=== PATIENT | female | born 1975 | race Caucasian/White ===

== ENCOUNTER 2018-04-11 03:20 | Inpatient (IN) | payer BC, OTHER ==
[~2018-04-11] VITALS: Ht 157.5 cm; Wt 93.0 kg
[2018-04-11 03:24] VITALS: BP 129/48
--- NOTE | 2018-04-11 03:28 | NUR ---
PT TAKEN TO BED 1
[2018-04-11] MEDS ORDERED: DICYCLOMINE HCL LIQUID 20 MG, ALUMINUM HYD/MAG/SIMETHICONE 30 ML, LIDOCAINE VISCOUS 2% ... PO ONE ×3 (04:00)
[2018-04-11] MEDS ORDERED: NACL 0.9% 1,000 ML IV ONE (04:00)
[2018-04-11] MEDS ORDERED: MORPHINE SULFATE 4 MG/ML SYR IVP ONE ×2 (04:00→07:05)
[2018-04-11] MEDS ORDERED: ONDANSETRON 4 MG/2 ML VIAL IVP ONE ×2 (04:00→07:05)
--- NOTE | 2018-04-11 04:35 | NUR ---
LAB COLLECTED BY OLU AND SENT TO LAB BY ALAINA RAINES.
[2018-04-11 05:18] LABS: ANION GAP 14.4 (8-16); CARBON DIOXIDE 22.7 mmol/L (21-32); CREATININE 0.8 mg/dL (0.6-1.3); POTASSIUM 3.1 mmol/L (3.5-5.1)
[2018-04-11 05:20] LABS: BASOPHILS % (AUTO) 0.4 % (0.0-2.0); EOSINOPHILS % (AUTO) 0.4 % (0.0-4.0); HEMATOCRIT 35.1 % (36-48); HEMOGLOBIN 11.4 g/dL (12.0-16.0); LYMPHOCYTES # (AUTO) 1.2 K/uL (2.5-16.5); LYMPHOCYTES % (AUTO) 15.9 % (20.5-51.1); MEAN CORPUSCULAR HEMOGLOBIN 26 pg (27-31); MEAN CORPUSCULAR HGB CONC 33 g/dL (33-37); MEAN CORPUSCULAR VOLUME 78.1 fL (80-94); MONOCYTES # (AUTO) 0.4 K/uL (0.8-1.0); MONOCYTES % (AUTO) 5.1 % (1.7-9.3); NEUTROPHILS # (AUTO) 5.9 K/uL (1.8-7.7); NEUTROPHILS % (AUTO) 78.2 % (42.2-75.2); PLATELET COUNT (AUTO) 227 K/uL (140-450); RED CELL DISTRIBUTION WIDTH 14.8 % (11.6-13.7); WHITE BLOOD COUNT (AUTO) 7.5 K/uL (4.8-10.8)
[2018-04-11 05:24] LABS: ALBUMIN 3.8 g/dL (3.4-5.0); TOTAL BILIRUBIN 0.2 mg/dL (0.0-1.0)
--- NOTE | 2018-04-11 06:24 | NUR ---
PT IS VOMITING AND PAIN IS 6/10, ER MD MADE AWARE. DR. MERLOS TO ORDER CT.
[2018-04-11] MEDS ORDERED: KETOROLAC 30 MG/ML VIAL IVP ONE (06:25)
--- NOTE | 2018-04-11 06:36 | NUR ---
PT TO CT VIA WHIT BY Wefunder.
[2018-04-11] MEDS ORDERED: KETOROLAC 60 MG/2 ML VIAL IM ONE (06:44)
--- NOTE | 2018-04-11 07:02 | NUR ---
Pt report given to Miky RAINES. Transfer of care at this time.
--- NOTE | 2018-04-11 07:04 | NUR ---
RECEIVED REPORT FROM ANA RAINES.
--- NOTE | 2018-04-11 07:47 | NUR ---
Patient appears to be resting comfortably in bed. BP 174/92, P 67, Respirations even and unlabored. ABD PAIN 4/10 AT THIS TIME. WILL CONTINUE TO MONITOR.
[2018-04-11] MEDS ORDERED: ACETAMINOPHEN 325 MG TAB PO PRN (07:50)
[2018-04-11] MEDS ORDERED: DOCUSATE SODIUM 100 MG GELCAP PO PRN (07:50)
[2018-04-11] MEDS ORDERED: POTASSIUM CHLORIDE 40 MEQ, LIDOCAINE MPF 1% - 5 mL VIAL 25 MG in NACL 0.9% 250 ML IV ONE (07:55)
--- NOTE | 2018-04-11 07:58 | NUR ---
X RAY AT BEDSIDE.
[2018-04-11] MEDS ORDERED: hydrALAZINE 20 MG/ML VIAL IVP PRN (08:20)
--- NOTE | 2018-04-11 08:35 | NUR ---
Patient will be admitted to care of DR GANDARA. Admited to TELE. Will go to room 112A. Belongings list completed. Report to JOE RAINES.
[2018-04-11 08:40] VITALS: BP 176/87
[2018-04-11] MEDS ORDERED: POTASSIUM CHLORIDE 40 MEQ, LIDOCAINE MPF 1% - 5 mL VIAL 25 MG in NACL 0.9% 250 ML IV SCH (09:00)
--- NOTE | 2018-04-11 09:00 | NUR ---
Admitted from ED , with chief complaint of ABDOMINAL PAIN SINCE LAST NIGHT WITH N&V. PT AAOX4. NO SOB NOTED. NO C/O PAIN AT THIS TIME. IV TO RT AC PATENT AND INTACT. CHEST CLEAR. ABDOMEN SOFT, BOWEL SOUNDS PRESENT. NO EDEMA NOTED. PT IS A 43 y/o ,Female, Cooperative,oriented to call light, bed, phone,television, bathroom, smoking policy, visiting hours, procedures, ID bracelet on. Belongings list checked. INSTRUCTED PT TO CALL FOR ASSISTANCE, CALL LIGHT WITHIN REACH, PT VERBALIZED UNDERSTANDING.
[2018-04-11] MEDS ORDERED: DICYCLOMINE HCL LIQUID 10 MG/5 ML UDC PO PRN (10:00)
[2018-04-11] MEDS ORDERED: ASPIRIN 81 MG TAB.CHEW PO SCH (10:08)
--- NOTE | 2018-04-11 10:17 | NUR ---
ULTRASOUND OF ABDOMEN ON GOING AT THE BEDSIDE.
[2018-04-11] MEDS: LACTOBACILLUS RHAMNOSUS GG 1 EACH CAP PO SCH (10:57)
[2018-04-11] MEDS: NACL 0.9% 1,000 ML IV SCH (10:57)
--- NOTE | 2018-04-11 11:00 | NUR ---
NPO EXCEPT MEDS MAINTAINED, PT VERBALIZED UNDERSTANDING.
[2018-04-11] MEDS: MORPHINE SULFATE 2 MG/ML SYR IVP PRN ×2 (11:11→15:37)
[2018-04-11] MEDS: ONDANSETRON 4 MG/2 ML VIAL IM/IVP PRN (11:14)
[2018-04-11 11:17] LABS: CHOL/HDL RATIO 2.9 (1-4.5); MAGNESIUM 1.6 mg/dL (1.8-2.4); PHOSPHORUS 3.7 mg/dL (2.5-4.9); THYROID STIMULATING HORMONE 0.72 uIU/mL (0.34-3.74)
[2018-04-11 11:24] LABS: PROTHROMBIN TIME 9.6 secs (10.8-13.4)
[2018-04-11 12:00] VITALS: BP 154/78
--- NOTE | 2018-04-11 13:30 | NUR ---
DR. VELAZCO IS AT THE BEDSIDE TALKING TO PT.
[2018-04-11] MEDS: HYDROcodone/APAP 7.5/325 MG 1 TAB PO PRN ×2 (14:10→18:53)
--- NOTE | 2018-04-11 15:00 | NUR ---
CONSENT FOR PLANNED SURGERY TOMORROW SIGNED BY PT. RISKS AND BENEFITS OF THE PROCEDURE EXPLAINED BY DR. VELAZCO EARLIER. VERBALIZED UNDERSTANDING.
[2018-04-11] MEDS ORDERED: ONDANSETRON 4 MG/2 ML VIAL ONE (15:32)
[2018-04-11] MEDS ORDERED: KETOROLAC 30 MG/ML VIAL ONE (15:32)
[2018-04-11] MEDS ORDERED: PROPOFOL 200 MG/20 ML VIAL IV ONE (15:32)
[2018-04-11] MEDS ORDERED: SUCCINYLCHOLINE CHLORIDE 200 MG/10 ML VIAL IVP ONE (15:32)
[2018-04-11] MEDS ORDERED: DESFLURANE 240 ML BTL INH ONE (15:32)
[2018-04-11] MEDS ORDERED: DEXAMETHASONE 4 MG/ML VIAL ONE (15:32)
[2018-04-11] MEDS ORDERED: ROCURONIUM 50 MG/5 ML VIAL IV ONE (15:32)
[2018-04-11 16:00] VITALS: BP 140/77
[2018-04-11] MEDS ORDERED: MAG SULF 2000 MG/WATER PREMIX 50 ML IV ONE (17:20)
--- NOTE | 2018-04-11 18:00 | NUR ---
PT TOLERATED FULL LIQUID DIET. NO N&V NOTED. NPO POST MIDNIGHT INSTRUCTED, VERBALIZED UNDERSTANDING.
--- NOTE | 2018-04-11 18:30 | NUR ---
STILL FOR URINE SPECIMEN COLLECTION FOR UDS. PT JUST HAD HER MENSTRUAL PERIOD TODAY, STATED SHE WILL COLLECT IT THE NEXT TIME SHE URINATES.
--- NOTE | 2018-04-11 19:20 | NUR ---
RECEIVED FROM AM RN IN BED AWAKE AND ALERT. WITH FAMILY MEMBER VISITING. CALL LIGHT WITH IN REACH AND CARE PLANS FOR THE NIGHT DISCUSSED WITH HER. REMINDED NPO STARTING MIDNIGHT. PROS AND CONS EXPLAINED WELL TO HER. "OK" ENCOURAGED TO CALL FOR HELP OR IF IN PAIN. DX. ABDOMINAL PAIN.
--- NOTE | 2018-04-11 19:23 | NUR ---
PT RESTING. NO SOB NOTED. NO COMPLAINTS OF PAIN AT THIS TIME. WILL ENDORSE TO NEXT SHIFT NURSE FOR CONTINUITY OF CARE.
[2018-04-11 19:49] VITALS: BP 141/80
[2018-04-11] MEDS: PIPER/TAZO 3.375GM/D5W PREMIX 50 ML IV SCH (20:24)
[2018-04-12 00:26] VITALS: BP 105/48
--- NOTE | 2018-04-12 00:28 | NUR ---
PT. SLEEPING WELL. WOKE UP EASILY WHEN CALLED BY NAME . VITAL SIGNS TAKEN. NO COMPLAINTS OF ANY PAIN AT THIS TIME. SLEPT BACK IMMEDIATELY WHEN VS DONE. CALL LIGHT WITH IN REACH.
--- NOTE | 2018-04-12 02:32 | NUR ---
SLEEPING WELL. CALL LIGHT WITH IN REACH.
[2018-04-12] MEDS: PIPER/TAZO 3.375GM/D5W PREMIX 50 ML IV SCH ×3 (04:17→21:36)
[2018-04-12] MEDS: MORPHINE SULFATE 2 MG/ML SYR IVP PRN ×3 (04:17→13:09)
[2018-04-12] MEDS: ONDANSETRON 4 MG/2 ML VIAL IM/IVP PRN (04:17)
--- NOTE | 2018-04-12 04:17 | NUR ---
MEDICATED WITH MORPHINE 2 MG IVP REQUESTED BY PT. MEDICATED WITH ZOFRAN IVP TOOO RT COMPLAINED OF NAUSEA.
[2018-04-12 04:18] VITALS: BP 125/72
--- NOTE | 2018-04-12 04:35 | NUR ---
PT. SLEEPING. NO SOB. ABLE TO VERBALIZE NEEDS WELL.
[2018-04-12 07:09] LABS: BASOPHILS % (AUTO) 0.2 % (0.0-2.0); HEMATOCRIT 33.5 % (36-48); HEMOGLOBIN 10.7 g/dL (12.0-16.0); LYMPHOCYTES # (AUTO) 0.9 K/uL (2.5-16.5); LYMPHOCYTES % (AUTO) 6.9 % (20.5-51.1); MEAN CORPUSCULAR HEMOGLOBIN 25 pg (27-31); MEAN CORPUSCULAR HGB CONC 32 g/dL (33-37); MEAN CORPUSCULAR VOLUME 78.9 fL (80-94); MONOCYTES # (AUTO) 0.8 K/uL (0.8-1.0); MONOCYTES % (AUTO) 6.4 % (1.7-9.3); NEUTROPHILS # (AUTO) 11.4 K/uL (1.8-7.7); NEUTROPHILS % (AUTO) 86.5 % (42.2-75.2); PLATELET COUNT (AUTO) 225 K/uL (140-450); RED BLOOD CELL COUNT(AUTO) 4.25 MIL/uL (4.20-5.40); RED CELL DISTRIBUTION WIDTH 15.3 % (11.6-13.7); WHITE BLOOD COUNT (AUTO) 13.2 K/uL (4.8-10.8)
[2018-04-12 07:23] LABS: ANION GAP 9.8 (8-16); CARBON DIOXIDE 26.5 mmol/L (21-32); CREATININE 0.8 mg/dL (0.6-1.3); POTASSIUM 3.3 mmol/L (3.5-5.1)
[2018-04-12 07:28] LABS: MAGNESIUM 2.5 mg/dL (1.8-2.4); PHOSPHORUS 2.7 mg/dL (2.5-4.9)
--- NOTE | 2018-04-12 07:37 | NUR ---
ENDORSED TO THE NEXT RN FOR CONTINUITY OF CARE. AWAKE AND ALERT. NO COMPLAINTS DONE. TELEMETRY MONITORING.
--- NOTE | 2018-04-12 07:38 | NUR ---
RECEIEVED BEDSIDE REPORT FROM CREDIT INTERVIEWER NURSE FLORENCIO. PATIENT AAOX4. PATIENT ON ROOM AIR, NO DISTRESS NOTED. SKIN INTACT. IV ON R AC 20 G INFUSING NS AT 40. IV ASYMPTOMATIC, INTACT AND PATENT. PATIENT ON TELE MONITOR AND STANDARD PRECAUTIONS IN PLACE. PATIENT AMBULATORY AND CONTINENT. BED IN LOW POSITION, CALL LIGHT WITHIN REACH. WILL CONTINUE TO MONITOR.
[2018-04-12] MEDS: NACL 0.9% 1,000 ML IV SCH (07:49)
[2018-04-12 08:00] VITALS: BP 115/59
--- NOTE | 2018-04-12 08:25 | NUR ---
PATIENT HAS BEEN SCREENED AND CATEGORIZED MODERATE NUTRITION RISK. PATIENT WILL BE SEEN WITHIN 3-5 DAYS OF ADMISSION. 04/13/18[address]
[2018-04-12 08:46] LABS: T4 (THYROXINE) 6.9 ug/dL (4.5-12.0)
[2018-04-12] MEDS ORDERED: ASPIRIN 81 MG TAB.CHEW PO SCH (09:00)
[2018-04-12] MEDS: LACTOBACILLUS RHAMNOSUS GG 1 EACH CAP PO SCH (09:00)
--- NOTE | 2018-04-12 09:30 | NUR ---
ADMINISTERED SCHEDULED MEDS. PATIENT TOLERATED WELL. WILL CONTINUE TO MONITOR.
[2018-04-12 12:00] VITALS: BP 115/69
--- NOTE | 2018-04-12 12:30 | NUR ---
PATIENT AMBULATED BACK FROM RESTROOM. PATIENT ON ROOM AIR, NO DISTRESS NOTED. WILL CONTINUE TO MONITOR. AT BEDSIDE.
[2018-04-12] MEDS ORDERED: POTASSIUM CHLORIDE 10 MEQ TABER PO SCH (14:00)
--- NOTE | 2018-04-12 14:40 | NUR ---
PATIENT PICKED UP FOR SURGERY. CONSENT SIGNED AND IN CHART. PATIENT IN STABLE CONDITION.
[2018-04-12] MEDS ORDERED: BUPIVACAINE-MPF/EPI 0.5% 30 ML VIAL INJ ONE (15:03)
[2018-04-12] MEDS ORDERED: SCOPOLAMINE 1.5 MG/72 HR PATCH TD ONE (15:12)
[2018-04-12] MEDS ORDERED: MIDAZOLAM 2 MG/2 ML VIAL ONE (15:42)
[2018-04-12] MEDS ORDERED: fentaNYL 0.05 MG/ML VIAL ONE (15:43)
[2018-04-12] MEDS ORDERED: ONDANSETRON 4 MG/2 ML VIAL IVP PRN (16:00)
[2018-04-12 18:36] VITALS: BP 143/84
--- NOTE | 2018-04-12 18:36 | NUR ---
RECEIVED BEDSIDE REPORT FROM OR NURSE WIL. PATIENT W CELIA DRAIN, EMPTIED 5 ML, EBL 30 ML, AND URINE OUTPUT 50 ML. 3 BANDAGES, 1 4X4 FOR CELIA DRAIN. CELIA DRAINAGE REDDISH BROWN. VITALS T 98.2, BP 143/84, HR 91, RR 16, O2 SAT 94%. WILL CONTINUE TO MONITOR Q15 MIN DURING REST OF SHIFT. AND 2 CHILDREN AT BEDSIDE.
[2018-04-12 18:51] VITALS: BP 135/81
[2018-04-12] MEDS: HYDROmorphone 1 MG/ML AMP IVP PRN ×2 (19:04→21:39)
--- NOTE | 2018-04-12 19:32 | NUR ---
GAVE BEDSIDE REPORT TO OLU HARTMANN. PATIENT ENDORSED IN STABLE CONDITION.
--- NOTE | 2018-04-12 19:33 | NUR ---
RECEIVED PT FROM AXEL RN PT S/P LAP JOHN AAOX4 RELATIVES AT BED SIDE ON TELEMETRY SR, ABD 3 SMALL DRESSING AND CELIA DRAINING WELL SANGUINEOUS LIQUID APONTE CATH DRAINING WELL YELLOW URINE INITIAL ASSESSMENT DONE
--- NOTE | 2018-04-12 22:34 | NUR ---
PT HAS BEEN MONITORING CLOSE AFTER PAIN MEDIC GIVENPT SLEEPING WELL NOT DISTRESS NOTED
[2018-04-13] VITALS: BP 142/70
--- NOTE | 2018-04-13 01:01 | NUR ---
PT SLEEPING WELL ON BILATERAL SEQUENTIAL STOCKING CELIA DRAINING WELLL SEROSANGUINEOUS
[2018-04-13] MEDS: HYDROmorphone 1 MG/ML AMP IVP PRN (02:05)
[2018-04-13 04:00] VITALS: BP 125/86
--- NOTE | 2018-04-13 04:00 | NUR ---
SPONGE BATH GIVEN LINEN CHANGED PT IS ASSISTED TOTHE RESTROOM ON TELEMETRY SR
[2018-04-13] MEDS: PIPER/TAZO 3.375GM/D5W PREMIX 50 ML IV SCH ×3 (05:27→21:15)
[2018-04-13] MEDS: NACL 0.9% 1,000 ML IV SCH (05:34)
--- NOTE | 2018-04-13 06:32 | NUR ---
PT RESTING ON BED SHE THAYER NTO PASSING GAS YET CELIA DRAINING WELL SEROSANGUINEOUS LIQUID TOALNIGHT SHIFT 21 ML, PT ON TELEMETRY SR, PT WILL BE ENDORSED TO DAY SHIFT NURSE FOR CONTINUITY OF CARE
--- NOTE | 2018-04-13 07:10 | NUR ---
RECEIVED PT REPORT FORM BENCH HAND MACHINE NURSE AT BEDSIDE. PT IS SLEEPING AT THIS TIME, NO S/S OF ANY DISTRESS. PT IS ON ROOM AIR, SKIN INTACT EXCEPT FOR THE THREE SMALL SURGICAL INCISIONS FROM THE LAP JOHN, COVERED BY DRESSINGS. IV SITE NOTED ON THE RAC, 20 G, INFUSING NS 40 ML/HR. PT IS AMBULATORY AND NOT AT RISK FOR FALLS. PT ON CARDIAC DIET. CALL LIGHT IS WITHIN REACH, WILL CONTINUE TO MONITOR.
[2018-04-13 08:00] VITALS: BP 132/84
[2018-04-13 08:28] LABS: HEMATOCRIT 32.9 % (36-48); HEMOGLOBIN 10.2 g/dL (12.0-16.0); LYMPHOCYTES # (AUTO) 0.8 K/uL (2.5-16.5); LYMPHOCYTES % (AUTO) 5.7 % (20.5-51.1); MEAN CORPUSCULAR HEMOGLOBIN 25 pg (27-31); MEAN CORPUSCULAR HGB CONC 31 g/dL (33-37); MEAN CORPUSCULAR VOLUME 80.1 fL (80-94); MONOCYTES # (AUTO) 0.8 K/uL (0.8-1.0); MONOCYTES % (AUTO) 5.4 % (1.7-9.3); NEUTROPHILS # (AUTO) 13.1 K/uL (1.8-7.7); NEUTROPHILS % (AUTO) 88.9 % (42.2-75.2); PLATELET COUNT (AUTO) 211 K/uL (140-450); RED BLOOD CELL COUNT(AUTO) 4.11 MIL/uL (4.20-5.40); RED CELL DISTRIBUTION WIDTH 15.3 % (11.6-13.7); WHITE BLOOD COUNT (AUTO) 14.8 K/uL (4.8-10.8)
[2018-04-13 09:10] LABS: ALBUMIN 2.9 g/dL (3.4-5.0); ANION GAP 12.8 (8-16); CARBON DIOXIDE 26.3 mmol/L (21-32); CREATININE 0.7 mg/dL (0.6-1.3); MAGNESIUM 2.5 mg/dL (1.8-2.4); PHOSPHORUS 2.1 mg/dL (2.5-4.9); POTASSIUM 4.1 mmol/L (3.5-5.1); TOTAL BILIRUBIN 0.5 mg/dL (0.0-1.0)
[2018-04-13] MEDS: LACTOBACILLUS RHAMNOSUS GG 1 EACH CAP PO SCH (09:23)
[2018-04-13] MEDS: MORPHINE SULFATE 2 MG/ML SYR IVP PRN ×4 (09:23→21:18)
--- NOTE | 2018-04-13 10:00 | NUR ---
PT ATE BREAKFAST, C/O ABD PAIN COMING BACK. WILL MEDICATE WHEN TIME IS APPROPRIATE.
--- NOTE | 2018-04-13 11:08 | NUR ---
PT SLEEPING WITH FAMILY AT BEDSIDE WILL RETRY TO HAVE PT DO IS
--- NOTE | 2018-04-13 12:05 | NUR ---
PT AMBULATING AROUND IN THE ROOM. PT STATES SHE IS FEELING STEADY.
[2018-04-13 16:00] VITALS: BP 150/72
[2018-04-13] MEDS: ONDANSETRON 4 MG/2 ML VIAL IM/IVP PRN ×2 (16:17→21:17)
--- NOTE | 2018-04-13 16:20 | NUR ---
PT C/O NAUSEA. PRN IV ZOFRAN ADMINISTERED. WILL CONTINUE TO MONITOR PT.
--- NOTE | 2018-04-13 18:15 | NUR ---
EMPTIED OUT 20 ML OF PINKISH FLUID FROM PT'S CELIA DRAIN. ABD SURGICAL BANDAGES ARE DRY, CLEAN AND INTACT.
--- NOTE | 2018-04-13 19:15 | NUR ---
PT ENDORSED TO CHILD ATTENDANT IN STABLE CONDITION.
--- NOTE | 2018-04-13 19:20 | NUR ---
RECEIVED PT FROM FAB RAINES PT IS AMBULATORY AAOX4 S/P GONZALES LOPEZ DENIES ANY [place] AT THIS TIME ABD DRESSING DRY AND INTACT INITIAL ASSESSMENT DONE
[2018-04-13 20:00] VITALS: BP 156/93
--- NOTE | 2018-04-13 22:00 | NUR ---
AFTER PAIN MEDIC GIVENPT REMAIN STABLE WATCHING TV CELIA DRAINING WELL SEROSANGUINEOUS LIQUID
[2018-04-14] VITALS: BP 148/80
--- NOTE | 2018-04-14 02:02 | NUR ---
PT SLEEPING WELL NOT SIGNS OF DISTRESS NOTED
[2018-04-14] MEDS: MORPHINE SULFATE 2 MG/ML SYR IVP PRN (04:03)
[2018-04-14] MEDS: PIPER/TAZO 3.375GM/D5W PREMIX 50 ML IV SCH (05:29)
--- NOTE | 2018-04-14 05:32 | NUR ---
PT SLEEPING WELL AFTER PAIN MEDIC GIVEN , LINEN ALREADY CHANGED
[2018-04-14] MEDS: NACL 0.9% 1,000 ML IV SCH (06:26)
--- NOTE | 2018-04-14 06:30 | NUR ---
PT SLEEPING NOT DISTRESS NOTED CELIA DURING ALL [employer]CAR DRIVER 20 ML ABD DRESSING DRY AND INTACT. IV ON RT AC INFUSIG WELL
[2018-04-14 06:31] LABS: BASOPHILS % (AUTO) 0.3 % (0.0-2.0); EOSINOPHILS % (AUTO) 0.3 % (0.0-4.0); HEMATOCRIT 31.2 % (36-48); HEMOGLOBIN 9.9 g/dL (12.0-16.0); LYMPHOCYTES # (AUTO) 0.8 K/uL (2.5-16.5); LYMPHOCYTES % (AUTO) 11.1 % (20.5-51.1); MEAN CORPUSCULAR HEMOGLOBIN 25 pg (27-31); MEAN CORPUSCULAR HGB CONC 32 g/dL (33-37); MEAN CORPUSCULAR VOLUME 79.9 fL (80-94); MONOCYTES # (AUTO) 0.6 K/uL (0.8-1.0); MONOCYTES % (AUTO) 7.8 % (1.7-9.3); NEUTROPHILS # (AUTO) 5.7 K/uL (1.8-7.7); NEUTROPHILS % (AUTO) 80.5 % (42.2-75.2); PLATELET COUNT (AUTO) 209 K/uL (140-450); RED BLOOD CELL COUNT(AUTO) 3.91 MIL/uL (4.20-5.40); RED CELL DISTRIBUTION WIDTH 15.2 % (11.6-13.7); WHITE BLOOD COUNT (AUTO) 7.1 K/uL (4.8-10.8)
[2018-04-14 07:07] LABS: CARBON DIOXIDE 26.3 mmol/L (21-32); CREATININE 0.7 mg/dL (0.6-1.3); POTASSIUM 3.3 mmol/L (3.5-5.1)
[2018-04-14 07:17] LABS: MAGNESIUM 2.1 mg/dL (1.8-2.4); PHOSPHORUS 2.7 mg/dL (2.5-4.9)
--- NOTE | 2018-04-14 07:23 | NUR ---
RECEIVED BEDSIDE REPORT FROM SKI EDGE PAINTER RN. PT IN STABLE CONDITION. S/P LAP JOHN WITH CELIA DRAIN TO SUCTION.DRESSINGS C/D/I. TOLERABLE ABD INCISIONAL PAIN. PT IS AMBULATORY WITHOUT ASSIST. AOX4. BS PRESENT IN ALL QUADRANTS. ALL SAFETY PRECAUTIONS IN PLACE, WILL CONTINUE TO MONITOR.
[2018-04-14 08:00] VITALS: BP 142/82
--- NOTE | 2018-04-14 08:16 | NUR ---
PATIENT AMBULATING IN [facility] WITHOUT ASSIST. STATES PAIN TOLERABLE.
[2018-04-14] MEDS: HYDROcodone/APAP 7.5/325 MG 1 TAB PO PRN (08:28)
[2018-04-14] MEDS: LACTOBACILLUS RHAMNOSUS GG 1 EACH CAP PO SCH (08:28)
[2018-04-14] MEDS ORDERED: ACET-5629 PO (08:47)
[2018-04-14] MEDS ORDERED: SODIUM PHOS / POTASSIUM PHOS 1 PKT PDR PO SCH (09:00)
[2018-04-14] MEDS ORDERED: LISI10TA11 PO (09:06)
--- NOTE | 2018-04-14 10:55 | NUR ---
DISCHARGE PAPERWORK, INCLUDING F/U APPOINTMENT W/ SURGEON, GIVEN TO PATIENT. NEW PRESCRIPTION/MEDICATION TEACHING AND MEDICATION RECONCILIATION TEACHING GIVEN TO PATIENT. IV SITE REMOVED WITH MINIMAL BLOOD LOSS AND LUMEN COMPLETELY INTACT. CELIA DRAIN REMOVED WITH MINIMAL BLOOD LOSS. D/C PHOTOS TAKEN. NEW DRESSINGS APPLIED. INCISIONAL CARE INSTRUCTIONS GIVEN. ID BANDS REMOVED. ALL PERSONAL BELONGINGS ARE WITH PATIENT. FLU VACCINE UP TO DATE. PNEUMOVAX NOT INDICATED. PATIENT DISCHARGED VIA WHEELCHAIR AND WILL GO HOME WITH FAMILY MEMBER VIA PRIVATE VEHICLE.
== END 2018-04-14 10:55 | disposition home or self-care (01) | DRG 417 ==
LOC: MED 03:20 → MTU 07:53
PROVIDERS: ADMIT General Practice; ATTEND General Practice
PROC: 0D9W40Z Drainage of Peritoneum with Drainage Device, Percutaneous Endoscopic Approach (ICD-10-PCS; 2018-04-12)
PROC: 0FT44ZZ Resection of Gallbladder, Percutaneous Endoscopic Approach (ICD-10-PCS; principal; 2018-04-12 15:00)
DX: K80.00 Calculus of gallbladder with acute cholecystitis without obstruction (principal); K65.3 Choleperitonitis; E87.1 Hypo-osmolality and hyponatremia; E87.6 Hypokalemia; E66.01 Morbid (severe) obesity due to excess calories; K66.0 Peritoneal adhesions (postprocedural) (postinfection); E78.00 Pure hypercholesterolemia, unspecified; I10 Essential (primary) hypertension; D50.9 Iron deficiency anemia, unspecified; K82.A1 Gangrene of gallbladder in cholecystitis; E83.41 Hypermagnesemia; E83.39 Other disorders of phosphorus metabolism; D63.8 Anemia in other chronic diseases classified elsewhere; E11.9 Type 2 diabetes mellitus without complications; N88.8 Other specified noninflammatory disorders of cervix uteri; Z68.37 Body mass index [BMI] 37.0-37.9, adult; Z98.51 Tubal ligation status; Z79.84 Long term (current) use of oral hypoglycemic drugs
CPT/HCPCS: 36415; 71045; 76700; 80048; 80053; 82150; 82374; 83036; 83540; 83605; 83690; 83735; 83880; 84100; 84436; 84443; 84479; 85025; 85610; 85730; 86886; 86900; 86901; 87040; 87081; 88304; 96361; 96374; 96375; 96376; 99285; J0330; J1100; J1170; J1644; J1885; J2001; J2250; J2270; J2405; J2543; J2704; J3010; J3475; J3480; J3490; J7030; Q0092